=== PATIENT | male | born 1975 | race Caucasian/White ===

== ENCOUNTER 2023-06-17 08:23 | Day surgery (SDC) | payer OTHER ==
[2023-06-17] MEDS: Lactated Ringers 1,000 ML IV SCH (08:33)
[2023-06-17] MEDS ORDERED: fentaNYL 50 MCG/ML SDV ONE (08:51)
[2023-06-17] MEDS ORDERED: Propofol 200 MG/20 ML SDV ONE ×2 (08:51)
[2023-06-17 09:57] VITALS: BP 117/77; PULSE 60
== END 2023-06-17 10:01 | disposition home or self-care (01) ==
LOC: CC.SDS 08:23
PROVIDERS: ATTEND Family Medicine
DX: Z12.11 Encounter for screening for malignant neoplasm of colon (principal); D12.2 Benign neoplasm of ascending colon; Z80.0 Family history of malignant neoplasm of digestive organs; Z79.899 Other long term (current) drug therapy
CPT/HCPCS: J2704; J3010; J7120